=== PATIENT | male | born 2000 | race Caucasian/White ===

== ENCOUNTER 2021-07-14 20:10 | Emergency (ER) | payer SELFPAY ==
[~2021-07-14] VITALS: Ht 170.2 cm; Wt 88.0 kg
[2021-07-14 20:12] VITALS: BP 121/67
[2021-07-14 20:23] VITALS: BP 121/67
--- NOTE | 2021-07-14 20:24 | NUR ---
PATIENT BIB [facility]. PATIENT EXAMINED BY DR. DILLON. PATIENT MEDICALLY CLEARED AND RELEASED IN CUSTODY IN STABLE CONDITION. ORIGINAL PRE-BOOK FORM GIVEN TO OFFICER CARLIE.
== END 2021-07-14 20:26 ==
LOC: MED 20:10
DX: Z02.89 Encounter for other administrative examinations (principal); V89.2XXA Person injured in unspecified motor-vehicle accident, traffic, initial encounter; Y93.89 Activity, other specified; Y92.89 Other specified places as the place of occurrence of the external cause; Y99.8 Other external cause status
CPT/HCPCS: 99283